=== PATIENT | male | born 1965 | race Hispanic/Latino ===

== ENCOUNTER 2018-03-01 18:20 | Inpatient (IN) | payer MEDICARE ==
[~2018-03-01] VITALS: Ht 177.8 cm; Wt 82.1 kg
[~2018-03-01 18:20] MED LIST: AMLODIPINE BESY10 MG PO; AMOXICILLIN250 MG PO; ASPIR 8181 MG PO; ATORVASTATIN CA20 MG PO; Aspirin PO; BENZONATATE100 MG PO; BUMETANIDE1 MG PO; CARVEDILOL3.125 MG PO; COREG12.5 MG PO; COREG3.125 MG PO; FEOSOL325 MG PO; FERROUS SULFAT325 MG PO; FUROSEMIDE40 MG PO; GLIPIZIDE XL5 MG PO; GLUCOVANCE 5-51 EACH PO; GLYBURIDE MICRON3 MG PO; HYDRALAZINE HCL25 MG PO; Hydralazine Hcl PO; ISOSORBIDE MONO30 MG PO; Isosorbide Mononitrate PO; LEVAQUIN250 MG PO; LEVAQUIN500 MG PO; LISINOPRIL2.5 MG PO; NITROSTAT0.4 MG SL; PEPCID20 MG PO; PLAVIX75 MG PO; RANITIDINE HCL150 MG PO; SENOKOT8.6 MG PO; SIMVASTATIN20 MG PO; SODIUM BICARBO650 MG PO
[2018-03-01 18:54] LABS: BASOPHILS # (AUTO) 0.1 (0.0-0.1); BASOPHILS % 0.5 % (0.0-1.0); EOSINOPHILS # (AUTO) 0.3 (0.0-0.4); HEMATOCRIT 24.4 % (38.2-49.6); HEMOGLOBIN 7.9 g/dL (14.0-18.0); LYMPHOCYTES # (AUTO) 1.4 (1.0-3.2); LYMPHOCYTES % 13.2 % (18.0-39.1); MEAN CORPUSCULAR HEMOGLOBIN 33.2 pg (28-32); MEAN CORPUSCULAR HGB CONC 32.4 g/dL (31-35); MEAN CORPUSCULAR VOLUME 102.5 fL (81-99); MONOCYTES # (AUTO) 0.9 (0.2-0.8); MONOCYTES % 8.3 % (4.4-11.3); NEUTROPHILS % 74.6 % (38.7-80.0); PLATELET COUNT 128 x10e3/uL (140-360); RED BLOOD COUNT 2.38 x10e6/uL (4.3-5.7); RED CELL DISTRIBUTION WIDTH 16.6 % (11.7-14.4)
[2018-03-01 19:00] LABS: INR 1.3; PROTHROMBIN TIME 15.2 seconds (11.9-14.5)
[2018-03-01 19:01] LABS: PARTIAL THROMBOPLASTIN TIME 27.4 seconds (23.8-35.5)
[2018-03-01 19:08] LABS: ALBUMIN 3.4 g/dL (3.5-5.0); ALBUMIN/GLOBULIN RATIO 1.1 (0.8-2.0); ANION GAP 20.3 mmol/L (8-16); CALCIUM 8.8 mg/dL (8.4-10.2); CREATININE, SERUM 13.65 mg/dL (0.72-1.25); POTASSIUM 4.3 mmol/L (3.5-5.1)
[2018-03-01 19:17] LABS: CREATINE KINASE MB 2.8 ng/mL (0-5.0)
--- NOTE | 2018-03-01 20:46 | Diagnostic Imaging Report ---
EXAMINATION: CHEST 2 VIEWS INDICATION: \S\ORDER PLACED BY MD \S\[id number] \S\1921 \S\Y COMPARISON: 06/10/2015 FINDINGS: PA and lateral views TUBES and LINES: None. LUNGS: Lungs are well inflated. Minimal interstitial edema, decreased from prior exam. PLEURA: No pleural effusion or pneumothorax. HEART AND MEDIASTINUM: The cardiomediastinal silhouette is unremarkable. BONES AND SOFT TISSUES: No acute osseous lesion. Soft tissues are unremarkable. UPPER ABDOMEN: No free air under the diaphragm. IMPRESSION: Minimal interstitial edema. No focal consolidation. Signed by: Dr. Prashanth Estevez MD on 03/01/2018 8:42 PM
[2018-03-01] MEDS ORDERED: ONDANSETRON HCL INJ 2 MG/ML VIAL IV PRN (21:15)
[2018-03-01] MEDS ORDERED: DEXTROSE 50% SYRINGE 50 ML IV PRN (21:15)
[2018-03-01] MEDS ORDERED: FUROSEMIDE INJ 10 MG/ML 4 ML VIAL IV ONE (21:15)
[2018-03-01] MEDS ORDERED: HYDRALAZINE HCL 20 MG/ML VIAL IV PRN (21:15)
[2018-03-01] MEDS ORDERED: FUROSEMIDE INJ 10 MG/ML 4 ML VIAL ONE (21:17)
[2018-03-01 22:04] VITALS: BP 167/79
[2018-03-02] VITALS (7 sets, daily range): BP systolic 110–156; BP diastolic 61–73
--- NOTE | 2018-03-02 06:10 | Diagnostic Imaging Report ---
EXAMINATION: CHEST SINGLE (PORTABLE) INDICATION: Shortness of breath COMPARISON: March 01, 2018 FINDINGS: TUBES and LINES: None. LUNGS: Lungs are well inflated. Lungs are clear. There is no evidence of pneumonia or pulmonary edema. PLEURA: No pleural effusion or pneumothorax. HEART AND MEDIASTINUM: The cardiomediastinal silhouette is unremarkable. BONES AND SOFT TISSUES: No acute osseous lesion. Soft tissues are unremarkable. UPPER ABDOMEN: No free air under the diaphragm. IMPRESSION: No acute thoracic abnormality. Signed by: Dr. Hao Browne M.D. on 03/02/2018 6:07 AM
[2018-03-02] MEDS ORDERED: BENZONATATE 100 MG CAP PO PRN (07:00)
[2018-03-02 07:29] LABS: BASOPHILS # (AUTO) 0.1 (0.0-0.1); BASOPHILS % 0.7 % (0.0-1.0); EOSINOPHILS # (AUTO) 0.4 (0.0-0.4); HEMATOCRIT 28.6 % (38.2-49.6); HEMOGLOBIN 9.4 g/dL (14.0-18.0); LYMPHOCYTES # (AUTO) 1.8 (1.0-3.2); LYMPHOCYTES % 14.7 % (18.0-39.1); MEAN CORPUSCULAR HEMOGLOBIN 33.6 pg (28-32); MEAN CORPUSCULAR HGB CONC 32.9 g/dL (31-35); MEAN CORPUSCULAR VOLUME 102.1 fL (81-99); NEUTROPHILS # (AUTO) 9.1 (2.1-6.9); NEUTROPHILS % 73.2 % (38.7-80.0); PLATELET COUNT 157 x10e3/uL (140-360); RED CELL DISTRIBUTION WIDTH 17.2 % (11.7-14.4)
[2018-03-02 07:51] LABS: ALBUMIN 3.7 g/dL (3.5-5.0); CALCIUM 9.4 mg/dL (8.4-10.2); CHOL/HDL RATIO 5.4 (3.9-4.7); CREATININE, SERUM 13.6 mg/dL (0.72-1.25)
[2018-03-02 08:12] LABS: FERRITIN 1119.77 ng/mL (21.81-274.66); THYROID STIMULATING HORMONE 2.857 uIU/mL (0.350-4.940)
--- NOTE | 2018-03-02 08:47 | History and Physical ---
PRIMARY CARE PHYSICIAN: Dr. Pederson MOTOR RACER: Dr. Rivera CARDIOVASCULAR SURGEON: Dr. Wang CHIEF COMPLAINT: Nausea, vomiting and shortness of breath. HISTORY OF PRESENT ILLNESS: This is a 52-year-old man with a history of end-stage renal disease, on dialysis for the past 4 years with peritoneal dialysis for the past 1 year, now developing nausea, vomiting and shortness of breath, and fever particularly with the use of dialysis. Therefore, came to the hospital and admitted for further evaluation and management. PAST MEDICAL HISTORY: Diabetes mellitus, hypertension, end-stage renal disease, on peritoneal dialysis for the past 1 year, stroke, coronary artery disease, coronary artery bypass grafting planned for March 25, 2018, with Dr. Wang, cigarette abuse, systolic congestive heart failure, left ventricular ejection fraction 30%. PAST SURGICAL HISTORY: Fistula placement, peritoneal dialysis catheter placement. ALLERGIES: PER ELECTRONIC MEDICAL RECORD. FAMILY HISTORY/SOCIAL HISTORY: Patient is and has 2 children. Occasional alcohol and quarter-pack cigarettes daily. MEDICATIONS: Per electronic medical record. REVIEW OF SYSTEMS: Denies any dizziness or chest pain. Denies any fever, chills or sweats. Denies any leg pain. Denies any headache or blurred vision or tinnitus. Denies any paresthesia. PHYSICAL EXAMINATION VITAL SIGNS: Have been reviewed. GENERAL: A tired-appearing man resting in bed. HEENT: Anicteric. Pupils respond to light. No oral lesions. CARDIOVASCULAR: Normal S1 and S2. Rapid heart rate. LUNGS: He has moderate breath sounds reduced at the bases. Fine crackles. ABDOMEN: Soft and nontender. He has a peritoneal catheter in the right side of the abdomen. No surrounding erythema at the dialysis catheter. EXTREMITIES: No edema or calf tenderness. NEUROLOGICAL: Alert and oriented times 3. Moving all extremities. SKIN: Dry. PSYCHIATRIC: Normal affect. LABS: Reviewed. MEDICATIONS: Reviewed. ASSESSMENT: This is a 52-year-old man with: 1. Acute exacerbation of systolic congestive heart failure. 2. End-stage renal disease, on peritoneal dialysis. 3. Acute gastroenteritis. 4. Diabetes mellitus, type 2. 5. Hypertension. 6. Macrocytic anemia. 7. Thrombocytopenia. 8. Hyperlipidemia. 9. Abnormal electrocardiogram with diffuse T-wave inversion. 10. Coronary artery disease with planned coronary artery bypass grafting by Dr. Wang on March 25, 2018. PLAN 1. Dialysis. 2. Treat nausea. 3. Treat acute gastroenteritis. 4. Nephrology consultation. 5. Resume heart medications. 6. Plan for coronary artery bypass grafting later in March with Dr. Wang. 7. Control blood pressure. 8. Obtain hemoglobin A1c and lipid panel. 9. Obtain anemia panel. 10. Avoid heparin products in the setting of thrombocytopenia. 11. Continue Plavix, aspirin, statin, beta jhonathan, and nitrate. 12. Use SCD for DVT prophylaxis. Job#: [id number] BURAK
[2018-03-02] MEDS ORDERED: HYDRALAZINE HCL 25 MG TAB PO SCH (09:00)
[2018-03-02] MEDS: CLOPIDOGREL BISULFATE 75 MG TAB PO SCH (09:00)
[2018-03-02] MEDS: ASPIRIN 81 MG CHEW TAB PO SCH (09:00)
[2018-03-02] MEDS: FERROUS SULFATE 325 MG TAB PO SCH (09:04)
[2018-03-02] MEDS: CARVEDILOL 3.125 MG TAB PO SCH ×2 (09:04→17:40)
[2018-03-02] MEDS: LISINOPRIL 2.5 MG TAB PO SCH (09:05)
[2018-03-02] MEDS: ISOSORBIDE MONONITRATE 30 MG TAB CR PO SCH (09:05)
[2018-03-02] MEDS: INSULIN REGULAR, HUMAN 100 UNIT/1 ML 3ML VIAL SQ SCH ×4 (09:05→21:00)
[2018-03-02] MEDS: SODIUM BICARBONATE 650 MG TAB PO SCH ×2 (09:05→17:40)
[2018-03-02] MEDS ORDERED: FUROSEMIDE INJ 10 MG/ML 2 ML VIAL IV SCH (14:00)
--- NOTE | 2018-03-02 14:25 | Consultation ---
DATE OF CONSULTATION: March 02, 2018 Mr. Sid Collins is a pleasant, 52-year-old gentleman with underlying history of end-stage renal disease on peritoneal dialysis. Has prior history of coronary artery disease and congestive heart failure. Renal has been consulted for management of underlying kidney failure. He is currently awake, alert, lying supine, in no apparent distress. Denies any nausea, vomiting or shortness of breath. Laboratory tests show white count 12.4, hemoglobin 9.4, potassium 4, creatinine 13.6, ferritin 1119, triglycerides 205, hemoglobin A1c 5.5. SOCIAL HISTORY: Does not smoke or drink. FAMILY HISTORY: Significant for hypertension and diabetes. PAST HISTORY: Significant for underlying hypertension, end-stage renal disease, history of congestive heart failure, secondary hyperparathyroidism, anemia of chronic kidney disease and hyperlipidemia. CURRENT MEDICATIONS: Patient is on: 1. Aspirin 81 mg daily. 2. Atorvastatin 80 mg once a day. 3. Tessalon Perles for cough. 4. Carvedilol 3.125 mg p.o. b.i.d. 5. Plavix 75 mg daily. 6. Ferrous sulfate 325 mg daily. 7. Hydralazine 25 mg p.o. q.i.d., which I am going to adjust to 50 mg p.o. 3 times a day. PHYSICAL EXAMINATION GENERAL: Awake, alert, oriented times 3, in no apparent distress. VITALS: Blood pressure 113/67. Pulse rate 80. HEAD AND NECK: Corneas clear. Oral mucosa dry. Neck veins flat. LUNGS: Occasional rhonchi, no rales. HEART: S1, S2 audible. ABDOMEN: Otherwise soft and nontender. PD catheter noted. LOWER EXTREMITIES: No edema. IMPRESSION 1. Likely bronchitis. 2. End-stage renal disease. 3. Underlying hypertension. 4. Hyperlipidemia. PLAN: Peritoneal dialysis. Dialysis nurse contacted. Discussed with family. Prescription noted. Job#: [id number]
[2018-03-02] MEDS: HYDRALAZINE HCL 25 MG TAB PO SCH ×2 (15:33→21:00)
[2018-03-02] MEDS ORDERED: ATORVASTATIN 40 MG TAB PO SCH (21:00)
[2018-03-03] VITALS: BP 126/60
[2018-03-03 04:00] VITALS: BP 112/62
[2018-03-03 06:40] LABS: BASOPHILS # (AUTO) 0.1 (0.0-0.1); BASOPHILS % 0.6 % (0.0-1.0); EOSINOPHILS # (AUTO) 0.4 (0.0-0.4); EOSINOPHILS % 4.6 % (0.0-6.0); HEMATOCRIT 25.7 % (38.2-49.6); HEMOGLOBIN 8.3 g/dL (14.0-18.0); LYMPHOCYTES # (AUTO) 1.5 (1.0-3.2); LYMPHOCYTES % 15.5 % (18.0-39.1); MEAN CORPUSCULAR HEMOGLOBIN 33.6 pg (28-32); MEAN CORPUSCULAR HGB CONC 32.3 g/dL (31-35); MONOCYTES # (AUTO) 0.9 (0.2-0.8); MONOCYTES % 9.3 % (4.4-11.3); NEUTROPHILS # (AUTO) 6.6 (2.1-6.9); NEUTROPHILS % 69.7 % (38.7-80.0); PLATELET COUNT 133 x10e3/uL (140-360); RED BLOOD COUNT 2.47 x10e6/uL (4.3-5.7); RED CELL DISTRIBUTION WIDTH 17.9 % (11.7-14.4)
[2018-03-03 06:58] LABS: ANION GAP 20.6 mmol/L (8-16); CALCIUM 8.3 mg/dL (8.4-10.2); CREATININE, SERUM 12.26 mg/dL (0.72-1.25); POTASSIUM 3.6 mmol/L (3.5-5.1)
[2018-03-03 07:45] VITALS: BP 111/64
[2018-03-03 07:50] VITALS: BP 111/64
[2018-03-03] MEDS: INSULIN REGULAR, HUMAN 100 UNIT/1 ML 3ML VIAL SQ SCH ×2 (08:30→12:37)
[2018-03-03] MEDS: ASPIRIN 81 MG CHEW TAB PO SCH (08:52)
[2018-03-03] MEDS: SODIUM BICARBONATE 650 MG TAB PO SCH (08:52)
[2018-03-03] MEDS: CLOPIDOGREL BISULFATE 75 MG TAB PO SCH (08:52)
[2018-03-03] MEDS: ISOSORBIDE MONONITRATE 30 MG TAB CR PO SCH (08:52)
[2018-03-03] MEDS: FERROUS SULFATE 325 MG TAB PO SCH (08:52)
[2018-03-03] MEDS: CARVEDILOL 3.125 MG TAB PO SCH (09:00)
[2018-03-03] MEDS: LISINOPRIL 2.5 MG TAB PO SCH (09:00)
[2018-03-03] MEDS: HYDRALAZINE HCL 25 MG TAB PO SCH (09:00)
[2018-03-03] MEDS ORDERED: HYDRALAZINE HCL25 MG PO (10:53)
[2018-03-03 12:14] VITALS: BP 138/68
--- NOTE | 2018-03-03 14:32 | Discharge Summary ---
PRINCIPAL DIAGNOSES 1. Coronary artery disease requiring coronary artery bypass grafting. 2. Acute exacerbation of systolic congestive heart failure. 3. End-stage renal disease on peritoneal dialysis. 4. Acute gastroenteritis. 5. Diabetes mellitus, type 2. 6. Macrocytic anemia. 7. Thrombocytopenia. 8. Hyperlipidemia. 9. Abnormal electrocardiogram with diffuse T-wave inversion. SECONDARY DIAGNOSIS: Coronary artery disease. CHIEF COMPLAINT: Nausea, vomiting, shortness of breath. HISTORY OF PRESENT ILLNESS: This is a 52-year-old male with nausea, vomiting and shortness of breath. Please refer to the H and P for further details. HOSPITAL COURSE: The patient was found to have acute exacerbation of systolic congestive heart failure. He also had end-stage renal disease on peritoneal dialysis. Treated for nausea and vomiting. Treated for acute gastroenteritis. He had diabetes mellitus, type 2. Hemoglobin A1c was obtained, which was 5.5, well controlled. The LDL was 120, and triglycerides were 205. He had severe coronary artery disease requiring bypass surgery. Dr. Wang recommended transfer to the [facility] for surgical management at this time. This will reduce the patient's risk of sudden at home. Therefore, the patient will be transitioned there. He did receive peritoneal dialysis during the hospitalization with some improvement in his shortness of breath. He needs surgical management at this time. DISCHARGE MEDICATIONS: Per electronic medical record. FOLLOWUP 1. With primary care doctor in 1 week. 2. Follow up with Dr. Wang today after transfer to [facility]. 3. Follow up with nephrology as directed. NELLI PARK MD Job#: [id number]
== END 2018-03-03 13:30 | disposition home or self-care (01) | DRG 291 ==
LOC: ER 18:20 → ERHOLD 21:08 → MED/SURG3 21:46
PROVIDERS: ADMIT Internal Medicine; ATTEND Internal Medicine
PROC: 3E1M39Z Irrigation of Peritoneal Cavity using Dialysate, Percutaneous Approach (ICD-10-PCS; principal; 2018-03-02)
DX: I13.2 Hypertensive heart and chronic kidney disease with heart failure and with stage 5 chronic kidney disease, or end stage renal disease (principal); I50.23 Acute on chronic systolic (congestive) heart failure; N18.6 End stage renal disease; Z99.2 Dependence on renal dialysis; E78.5 Hyperlipidemia, unspecified; I25.10 Atherosclerotic heart disease of native coronary artery without angina pectoris; K52.9 Noninfective gastroenteritis and colitis, unspecified; D69.6 Thrombocytopenia, unspecified; I27.9 Pulmonary heart disease, unspecified; E11.22 Type 2 diabetes mellitus with diabetic chronic kidney disease
CPT/HCPCS: 36415; 71045; 71046; 80048; 80053; 80061; 82550; 82553; 82607; 82728; 82948; 83036; 83540; 83735; 83880; 84443; 84466; 84484; 85025; 85610; 85730; 93005; 99284; J1940; J2405